=== PATIENT | male | born 1970 | race Caucasian/White ===

== ENCOUNTER 2017-11-28 14:22 | Emergency (ER) | payer OTHER ==
[2017-11-28 14:42] VITALS: BP 143/90
--- NOTE | 2017-11-28 15:45 | UC ---
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 The pain resolved with ibuprofen 600mg po and he did not think much of it again, until he bent over and it triggered pain again. Denies abdominal pain, disuria, fever or SOB. - History Of Current Complaint Chief Complaint: UCGeneralIllness Stated Complaint: RIB INJURY Time Seen by Provider: 11/28/17 15:14 Pain Intensity: 3 - Allergies/Home Medications Allergies/Adverse Reactions: Allergies Allergy/AdvReac Type Severity Reaction Status Date / Time No Known Allergies Allergy Verified 11/28/17 14:34 Home Medications: Home Medications Ibuprofen TAB* [Motrin TAB* 600 MG] 600 mg PO Q6H PRN 11/28/17 [History Confirmed 11/28/17] PMH/Surg Hx/FS Hx/Imm Hx Previously Healthy: Yes - Surgical History Surgical History: None - Social History Alcohol Use: Rare Substance Use Type: None Smoking Status (MU): Never Smoked Tobacco Review of Systems Constitutional: Negative Respiratory: Negative Musculoskeletal: Arthralgia All Other Systems Reviewed And Are Negative: Yes Physical Exam Triage Information Reviewed: Yes Appearance: Well-Appearing, Obese Vital Signs: Initial Vital Signs Temp 98.6 F 11/28/17 14:35 Pulse 63 11/28/17 14:35 Resp 16 11/28/17 14:35 BP 143/90 11/28/17 14:35 Pulse Ox 97 11/28/17 14:35 Vital Signs Reviewed: Yes Eyes: Positive: Conjunctiva Clear ENT: Positive: Hearing grossly normal, Pharynx normal, TMs normal Neck: Positive: Supple, Nontender, No Lymphadenopathy Respiratory: Positive: Chest non-tender, Lungs clear, Normal breath sounds, No respiratory distress Cardiovascular: Positive: RRR, No Murmur, Pulses Normal Abdomen Description: Positive: Nontender, No Organomegaly, Soft Musculoskeletal: Positive: Strength Intact, ROM Intact, No Edema, Other: - tender along left side of ribcage upon palpation, no deformity, no skin bruising Truncal Trauma Course/Dx - Course Course Of Treatment: Left Ribcage series within normal, no fracture identified. Continue ibuprofen as needed and continue gentle stretching as tolerated to regain full range of motion. Follow up with PCP - Differential Dx/Diagnosis Provider Diagnoses: ribcage sprain Discharge - Discharge Plan Condition: Stable Disposition: HOME Patient Education Materials: Musculoskeletal Pain (ED) Referrals: Demarcus Sorensen MD [Primary Care Provider] -
--- NOTE | 2017-11-28 16:05 | RAD ---
Indication: LEFT anterior lower rib pain following injury one week ago. Comparison: No prior exams available on the [facility] for comparison. Technique: 4 view LEFT unilateral rib series. Report: Inferolateral skin marker noted indicating the site of clinical concern. No LEFT rib fracture, pleural effusion, or pneumothorax. Unremarkable soft tissue contours. IMPRESSION: Negative LEFT unilateral rib series.
== END 2017-11-28 16:30 | disposition home or self-care (01) ==
LOC: UCEAST 14:22
DX: S23.41XA Sprain of ribs, initial encounter (principal); W22.8XXA Striking against or struck by other objects, initial encounter; Y93.89 Activity, other specified; Y92.9 Unspecified place or not applicable
CPT/HCPCS: 99201; G0463